=== PATIENT | female | born 1970 | race Caucasian/White ===

== ENCOUNTER 2018-05-16 07:22 | Inpatient (IN) | payer OTHER ==
[2018-05-16] MEDS ORDERED: CEFAZOLIN 2 GM/50 ML (PMX) 50 ML IVPB (07:30)
[2018-05-16] MEDS: DEXAMETHASONE 1 MG TAB PO (08:29)
[2018-05-16] MEDS: GABAPENTIN 300 MG CAP PO ×2 (08:29→20:33)
[2018-05-16] MEDS ORDERED: MIDAZOLAM 1 MG/ML 2 ML INJ (09:29)
[2018-05-16] MEDS ORDERED: FENTAnyl 50 MCG/ML VIAL ×2 (09:29→09:57)
[2018-05-16] MEDS ORDERED: ONDANSETRON 4 MG INJ (09:29)
[2018-05-16] MEDS ORDERED: DEXAMETHASONE 4 MG/ML 5 ML INJ (09:29)
[2018-05-16] MEDS ORDERED: PROPOFOL 20 ML (09:29)
[2018-05-16] MEDS ORDERED: ROCURONIUM 50 MG INJ (09:29)
[2018-05-16] MEDS ORDERED: CEFAZOLIN 1 GM INJ (09:29)
[2018-05-16] MEDS ORDERED: GLYCOPYRROLATE 0.4 MG INJ ×2 (09:29→11:20)
[2018-05-16] MEDS ORDERED: IPRATROPIUM (NEB) 0.5 MG/2.5 ML AMP HHN (09:30)
[2018-05-16] MEDS ORDERED: FENTAnyl 50 MCG/ML VIAL IV ×3 (09:30)
[2018-05-16] MEDS ORDERED: CA CHLORIDE 10% 10 ML SYRINGE (09:30)
[2018-05-16] MEDS ORDERED: LABETALOL HCL 20MG INJ IV (09:30)
[2018-05-16] MEDS ORDERED: MIDAZOLAM 1 MG/ML 2 ML INJ IV (09:30)
[2018-05-16] MEDS ORDERED: DIPHENHYDRAMINE 50 MG INJ IV ×2 (09:30→11:30)
[2018-05-16] MEDS ORDERED: THROMBIN (BOVINE) 5,000 UNIT VIAL TP (09:30)
[2018-05-16] MEDS ORDERED: ALBUTEROL 0.083% (NEB) 2.5 MG/3 ML AMP HHN (09:30)
[2018-05-16] MEDS ORDERED: hydrALAzine 20 MG INJ IV (09:30)
[2018-05-16] MEDS ORDERED: EPHEDrine SULFATE 50 MG/5 ML SYG IV (09:30)
[2018-05-16] MEDS ORDERED: TRIMETHOBENZAMIDE 100 MG/ML VIAL IM (09:30)
[2018-05-16] MEDS ORDERED: HYDROmorphONE 1 MG/5 ML IV SYRINGE IV ×3 (09:30)
[2018-05-16] MEDS ORDERED: MEPERIDINE 25 MG INJ IV (09:30)
[2018-05-16] MEDS ORDERED: ROPIVACAINE 0.5 % 30 ML VIAL (09:31)
[2018-05-16] MEDS ORDERED: NEOSTIGMINE 10 MG INJ (11:20)
[2018-05-16] MEDS ORDERED: MAGNESIUM HYDROXIDE 30ML CUP PO (11:30)
[2018-05-16] MEDS ORDERED: ZOLPIDEM 5 MG TAB PO (11:30)
[2018-05-16] MEDS ORDERED: LOPERAMIDE 2 MG CAP PO (11:30)
[2018-05-16] MEDS ORDERED: ONDANSETRON 4 MG INJ IV (11:30)
[2018-05-16] MEDS ORDERED: METOCLOPRAMIDE 10 MG INJ (11:33)
[2018-05-16] MEDS: TRANEXAMIC ACID 1GM/100ML(PMX) 100 ML IVPB ×2 (11:54→12:10)
[2018-05-16] MEDS: BUPIVACAINE 0.5% (SDV) 30 ML, morphine SULFATE (PF) 8 MG, EPINEPHrine 0.3 MG, KETOROLAC... IRR (11:54)
[2018-05-16] MEDS: CEFAZOLIN 1 GM/50 ML (PMX) 50 ML IVPB ×2 (12:05→20:33)
[2018-05-16] MEDS: ONDANSETRON 4 MG INJ IV (12:07)
[2018-05-16] MEDS: ACETAMINOPHEN 500 MG TAB PO ×3 (12:14→23:33)
[2018-05-16] MEDS: DEXAMETHASONE 2 MG TAB PO ×3 (12:14→23:33)
[2018-05-16] MEDS: SENNA/DOCUSATE NA (8.6MG/50MG) TAB PO (20:33)
[2018-05-16] MEDS: NACL 0.9% 3 ML SYG IV (20:41)
[2018-05-16] MEDS: HYDROmorphONE 1 MG/ML SYG IV (23:37)
[2018-05-17] MEDS: oxyCODONE 5 MG TAB PO ×2 (02:58→09:31)
[2018-05-17] MEDS: CEFAZOLIN 1 GM/50 ML (PMX) 50 ML IVPB (04:16)
[2018-05-17] MEDS: HYDROmorphONE 1 MG/ML SYG IV (04:23)
[2018-05-17] MEDS: DEXAMETHASONE 2 MG TAB PO (05:33)
[2018-05-17] MEDS: ACETAMINOPHEN 500 MG TAB PO (05:33)
[2018-05-17] MEDS: KETOROLAC 15 MG INJ IV (06:28)
[2018-05-17] MEDS: SENNA/DOCUSATE NA (8.6MG/50MG) TAB PO (09:31)
[2018-05-19] MEDS ORDERED: INFLUENZA VIRUS VACCINE 0.5 ML (DISPENSING) IM* (10:00)
== END 2018-05-17 11:45 | disposition home or self-care (01) | DRG 483 ==
LOC: REC 07:22 → MS1 13:35
PROC: 0RRK0JZ Replacement of Left Shoulder Joint with Synthetic Substitute, Open Approach (ICD-10-PCS; principal; 2018-05-16 09:30)
PROC: 0PBB0ZZ Excision of Left Clavicle, Open Approach (ICD-10-PCS; 2018-05-16 09:30)
PROC: 0LS40ZZ Reposition Left Upper Arm Tendon, Open Approach (ICD-10-PCS; 2018-05-16 09:30)
DX: M19.112 Post-traumatic osteoarthritis, left shoulder (principal); S46.212A Strain of muscle, fascia and tendon of other parts of biceps, left arm, initial encounter; X58.XXXA Exposure to other specified factors, initial encounter
CPT/HCPCS: 73030; 84703; 86999; 88304; 88311; 97161